=== PATIENT | female | born 1975 | race Caucasian/White ===

== ENCOUNTER 2018-01-24 10:51 | Day surgery (SDC) | payer BC ==
[~2018-01-24] VITALS: Ht 162.6 cm; Wt 59.4 kg
[~2018-01-24 10:51] MED LIST: BACL10; CLON.5; ERGO400; GABA300; GLUC500; Maxalt10 MG
== END 2018-01-24 12:05 | disposition home or self-care (01) ==
LOC: ORSCSDS 10:51
PROVIDERS: Anesthesiology
PROC: 3E0R33Z Introduction of Anti-inflammatory into Spinal Canal, Percutaneous Approach (ICD-10-PCS; principal; 2018-01-24 12:15)
DX: M54.12 Radiculopathy, cervical region (principal); E78.00 Pure hypercholesterolemia, unspecified; E78.5 Hyperlipidemia, unspecified; J45.909 Unspecified asthma, uncomplicated; Z79.899 Other long term (current) drug therapy
CPT/HCPCS: J1040; J2250; J3010; J7040

== ENCOUNTER → 2018-02-07 | Outpatient (CLI) | payer BC ==
[2018-02-08 12:59] LABS: HPV Genotype 16 Not Detected (NOTDET); HPV Genotype 18 Not Detected (NOTDET)
[2018-02-14 12:23] LABS: HPV High Risk Other Not Detected (NOTDET)
== END ==
LOC: LAB 08:39 → LAB SHORT 08:39
PROVIDERS: Registered Nurse
DX: Z12.4 Encounter for screening for malignant neoplasm of cervix (principal)
CPT/HCPCS: 87624; G0123

== ENCOUNTER → 2022-03-08 | Outpatient (CLI) | payer BC ==
[2022-03-11 08:52] LABS: Stool Occult Bld Immuno 1 Negative (NEGATIVE)
== END ==
LOC: LAB 13:27 → LAB SHORT 13:27
PROVIDERS: Nurse Practitioner Family
DX: Z12.11 Encounter for screening for malignant neoplasm of colon (principal)
CPT/HCPCS: G0328